=== PATIENT | female | born 2000 | race Caucasian/White ===

== ENCOUNTER 2018-03-15 23:11 | Emergency (ER) | payer OTHER, SELFPAY ==
[2018-03-15 23:24] VITALS: BP 130/79; PULSE 89; RESP 18; TEMP 36.6; O2SAT 99; BMI 26.5
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
--- NOTE | 2018-03-15 23:41 | DI.CT.S_ITS ---
PROCEDURE: CT ANGIO HEAD AND NECK INDICATIONS: neck pain w/headache TECHNIQUE: Pre-contrast 4.5 mm thick sections acquired from the foramen magnum to the vertex. After the administration of intravenous contrast, 1 mm thick sections acquired from the aortic arch through the Holmen of Verg[place]. Post-contrast 4.5 mm thick sections then re-acquired from the foramen magnum to the vertex. 3-dimensional hthrjdh-kaamhzlst-kdfmhxtegh (MIP) and/or volume rendering reformats were acquired of the central intracranial vasculature and neck separately. COMPARISON: None. FINDINGS: Image quality: Excellent. BRAIN: CSF spaces: Ventricles are normal in size and shape. Basal cisterns are patent. No extra-axial fluid collections. Brain: No midline shift. No intracranial bleeds or masses. Betancur-white matter interface appears intact. Skull and face: Calvarium and facial bones appear intact, without suspicious lesions. Orbits appear normal. Sinuses: Sinuses and mastoids are clear. HEAD CT ANGIOGRAPHY: Anterior circulation: Intracranial internal carotid arteries are normal in size and flow. The flow within the paired anterior cerebral arteries is normal and symmetric. The flow within the middle cerebral arteries is normal and symmetric. The anterior communicating artery is seen. No aneurysms are seen. Posterior circulation: Visualized portions of the vertebral arteries demonstrate normal caliber, and join to form a normal appearing basilar artery. Flow within the posterior cerebral arteries is normal and symmetric. No aneurysms are seen. Dural sinuses demonstrate normal postcontrast enhancement. NECK CT ANGIOGRAPHY: Carotid system: The great vessels demonstrate a conventional anatomy as they arise from the aortic arch. The origins of the common carotid arteries appear patent. The common carotid arteries demonstrate normal caliber and courses. The bifurcation regions are both widely patent. The internal carotid arteries demonstrate normal calibers and courses. Posterior circulation: The origins of the vertebral arteries both appear widely patent. The more superior extracranial portions of both vertebral arteries also demonstrate normal courses and calibers. They join to form a normal appearing basilar artery. Soft tissues: Visualized neck soft tissues demonstrate no suspicious abnormalities. Bones: No suspicious bony lesions. Visualized cervical spine appears normally aligned. IMPRESSION: 1. Negative examination without evidence of vascular occlusion, stenosis or dissection. 2. No acute intracranial disease process. Any quantitative measurements of stenosis were performed using NASCET criteria. Dictated by: Nayeli Hung MD, PhD on 03/16/2018 at 8:32 Approved by: Nayeli Hung MD, PhD on 03/16/2018 at 8:40
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
[2018-03-16 02:15] VITALS: BP 101/58; PULSE 84; RESP 14; O2SAT 99
== END 2018-03-16 02:16 | disposition home or self-care (01) ==
PROVIDERS: Emergency Provider Emergency Medicine
DX: R51 Headache (principal); T14.8XXA Other injury of unspecified body region, initial encounter
CPT/HCPCS: 36591; 70496; 70498; 81025; 99282; 99284; Q9967